=== PATIENT | male | born 1980 | race Caucasian/White ===

== ENCOUNTER 2017-04-20 12:48 | Emergency (ER) | payer OTHER ==
[2017-04-20 12:59] VITALS: BP 147/91; PULSE 101; RESP 16; TEMP 96.8; O2SAT 99
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
== END 2017-04-20 13:48 | disposition home or self-care (01) ==
DX: S51.832A Puncture wound without foreign body of left forearm, initial encounter (principal); F17.200 Nicotine dependence, unspecified, uncomplicated; W55.49XA Other contact with pig, initial encounter; Y92.511 Restaurant or cafe as the place of occurrence of the external cause; Y99.0 Civilian activity done for income or pay; Y93.89 Activity, other specified

== ENCOUNTER 2017-04-24 04:05 | Inpatient (IN) | payer SELFPAY ==
[2017-04-24] MEDS ORDERED: LORazepam 2 MG/ML INJ ONE (04:08)
[2017-04-24] MEDS ORDERED: LORazepam 2 MG/ML INJ IVP ONE ×2 (04:12→04:51)
[2017-04-24] MEDS ORDERED: NS 1,000 ML IV ONE ×2 (04:16→04:31)
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
[2017-04-24 04:24] LABS: % IMMATURE GRANULYOCYTES 0.6 % (0.0-1.1); ABSOLUTE IMMATURE GRANULOCYTES 0.06 10^3/uL (0.00-0.10); ADD DIFF? NO; ADD MORPH? NO; ADD SCAN? NO; ATYPICAL LYMPHOCYTE FLAG 40 (0-99); FRAGMENT RBC FLAG 0 (0-99); HEMOGLOBIN 16.8 g/dL (13.7-17.5); LEFT SHIFT FLG 0 (0-99); LIPEMIA HEMOLYSIS FLAG 90 (0-99); MEAN CELL HEMOGLOBIN 35.4 pg (27.9-34.1); MEAN CELL HEMOGLOBIN CONCENTR. 34.3 g/dL (32.4-36.7); MEAN CELL VOLUME 103.2 fL (81.5-99.8); MEAN PLATELET VOLUME 10.4 fL (8.7-11.7); PLATELET CLUMPS FLAG 0 (0-99); PLATELET COUNT 137 10^3/uL (150-400); RED BLOOD CELL COUNT 4.75 10^6/uL (4.40-6.38); RED CELL DISTRIBUTION WIDTH 12.8 % (11.5-15.2)
[2017-04-24 04:50] LABS: ALANINE AMINOTRANSFERASE 192 IU/L (21-72); ALBUMIN 5.2 g/dL (3.5-5.0); ALKALINE PHOSPHATASE 107 IU/L (38-126); ANION GAP 29 mEq/L (8-16); ASPARTATE AMINOTRANSFERASE 213 IU/L (17-59); BILIRUBIN,TOTAL 1.6 mg/dL (0.1-1.4); BILIRUBIN-CONJUGATED 0.8 mg/dL (0.0-0.5); BILIRUBIN-UNCONJUGATED 0.8 mg/dL (0.0-1.1); CALCIUM 10.5 mg/dL (8.5-10.4); CARBON DIOXIDE 15 mEq/l (22-31); CHLORIDE 96 mEq/L (97-110); CREATININE 1.2 mg/dL (0.7-1.3); GLOMERULAR FILTRATION RATE > 60; GLUCOSE 142 mg/dL (70-100); MAGNESIUM 1.9 mg/dL (1.6-2.3); POTASSIUM 3.9 mEq/L (3.5-5.2); SODIUM 140 mEq/L (134-144); TOTAL PROTEIN 8.2 g/dL (6.3-8.2)
--- NOTE | 2017-04-24 04:57 | CPEKG ---
Heart Rate: 109 RR Interval: 550 P-R Interval: 124 QRSD Interval: 82 QT Interval: 352 QTC Interval: 475 P [place]: 70 QRS [place]: 66 T Wave [place]: 39 EKG Severity - OTHERWISE NORMAL ECG - EKG Impression: SINUS TACHYCARDIA EKG Impression: PAC Electronically Signed By: Aries Sosa 30-Apr-2017 07:39:50
[2017-04-24 05:11] LABS: ETHANOL SERUM < 10 mg/dL (0-10)
[2017-04-24] MEDS ORDERED: ONDANSETRON 4 MG/2 ML VIAL IVP PRN (05:20)
[2017-04-24] MEDS ORDERED: ONDANSETRON DISINTEGRATING 4 MG TAB PO PRN (05:20)
[2017-04-24] MEDS ORDERED: ACETAMINOPHEN 325 MG TAB PO PRN (05:20)
[2017-04-24] MEDS ORDERED: LORazepam 1 MG TAB PO PRN (05:21)
[2017-04-24] MEDS ORDERED: THIAMINE HCL 100 MG TAB ONE (05:26)
[2017-04-24] MEDS: NS 1,000 ML IV SCH ×3 (05:29→14:57)
[2017-04-24 05:39] LABS: INR 0.94 (0.83-1.16); PROTIME(PATIENT) 12.5 SEC (12.0-15.0)
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
[2017-04-24] MEDS: LORazepam 2 MG/ML INJ IVP PRN ×2 (07:49→13:21)
[2017-04-24 08:08] LABS: COLOR YELLOW; LEUKOCYTE ESTERASE,URINE NEGATIVE (NEGATIVE); NITRITE,URINE NEGATIVE (NEGATIVE)
[2017-04-24 08:14] LABS: BACTERIA TRACE /hpf (NONE SEEN); MUCUS TRACE /lpf (NONE-1+)
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
[2017-04-24] MEDS ORDERED: IBUPROFEN 200 MG TAB PO PRN (18:52)
--- NOTE | 2017-04-24 18:55 | HOSPPROG ---
Hospitalist Progress Note Assessment/Plan: prolonged service in addition to the time originally spent on the history and physical, direct patient care, [id number] with patient and his girlfriend from 5:30 p.m. until 6:00 p.m. 30 minutes total time, addressing the following issues: - counseled the patient regarding the time course acute alcohol withdrawal -patient remains high risk for recurrent seizure given that he had a seizure this morning and he remains tremulous, intermittently tachycardic -discussed with patient's nurse, he has only required several doses of Ativan throughout today shift, can adjust his status to med surge - patient desires to stop drinking and would like social work guidance tomorrow -will continue CIWA scoring, and discharge patient once his scoring improves and he can be safely managed with oral Ativan or Librium at home with close outpatient follow-up -will provide patient with referral for outpatient PCP - counseled patient regarding the risk of future episodes of alcohol withdrawal Subjective: ambulating remains tremulous Objective: Vital Signs Temp Pulse Resp BP Pulse Ox 36.7 C 84 14 131/84 H 97 04/24/17 16:00 04/24/17 16:00 04/24/17 16:00 04/24/17 16:00 04/24/17 16:00 04/23/17 04/24/17 04/25/17 05:59 05:59 05:59 Intake Total 3189 Output Total 625 Balance 2564 PT 12.5 SEC (12.0-15.0) 04/24/17 04:00 INR 0.94 (0.83-1.16) 04/24/17 04:00 - Physical Exam Neurologic: AAOx3, other ( visibly tremulous) Psychiatric: interacting appropriately, not anxious, not encephalopathic, thought process linear ICD10 Worksheet Patient Problems: Problems Problem Status Onset Alcohol withdrawal Acute Alcohol withdrawal seizure Acute Tachycardia Acute
[2017-04-25] MEDS: LORazepam 2 MG/ML INJ IVP PRN (01:15)
[2017-04-25 04:38] LABS: % IMMATURE GRANULYOCYTES 0.5 % (0.0-1.1); ABSOLUTE IMMATURE GRANULOCYTES 0.02 10^3/uL (0.00-0.10); ADD DIFF? NO; ADD MORPH? NO; ADD SCAN? NO; ATYPICAL LYMPHOCYTE FLAG 10 (0-99); FRAGMENT RBC FLAG 0 (0-99); HEMATOCRIT 34.6 % (40.0-51.0); LEFT SHIFT FLG 0 (0-99); LIPEMIA HEMOLYSIS FLAG 90 (0-99); MEAN CELL HEMOGLOBIN 35.1 pg (27.9-34.1); MEAN CELL HEMOGLOBIN CONCENTR. 34.7 g/dL (32.4-36.7); MEAN CELL VOLUME 101.2 fL (81.5-99.8); MEAN PLATELET VOLUME 9.7 fL (8.7-11.7); PLATELET CLUMPS FLAG 10 (0-99); PLATELET COUNT 93 10^3/uL (150-400); RED BLOOD CELL COUNT 3.42 10^6/uL (4.40-6.38); RED CELL DISTRIBUTION WIDTH 12.8 % (11.5-15.2)
[2017-04-25 05:07] LABS: ALANINE AMINOTRANSFERASE 148 IU/L (21-72); ALBUMIN 2.6 g/dL (3.5-5.0); ALKALINE PHOSPHATASE 59 IU/L (38-126); ANION GAP 6 mEq/L (8-16); ASPARTATE AMINOTRANSFERASE 156 IU/L (17-59); BILIRUBIN,TOTAL 1.1 mg/dL (0.1-1.4); CARBON DIOXIDE 20 mEq/l (22-31); CHLORIDE 114 mEq/L (97-110); CREATININE 0.6 mg/dL (0.7-1.3); GLOMERULAR FILTRATION RATE > 60; GLUCOSE 70 mg/dL (70-100); MAGNESIUM 1.5 mg/dL (1.6-2.3); POTASSIUM 2.9 mEq/L (3.5-5.2); SODIUM 140 mEq/L (134-144); TOTAL PROTEIN 4.7 g/dL (6.3-8.2)
[2017-04-25] MEDS ORDERED: PROTOCOL CALCIUM 1 DOSE IV PRN (06:52)
[2017-04-25] MEDS ORDERED: PROTOCOL MAGNESIUM 1 DOSE IV PRN (06:52)
[2017-04-25] MEDS ORDERED: PROTOCOL POTASSIUM 1 DOSE MISC PRN (06:52)
[2017-04-25 07:01] LABS: ANION GAP 8 mEq/L (8-16); CALCIUM 8.7 mg/dL (8.5-10.4); CARBON DIOXIDE 23 mEq/l (22-31); CHLORIDE 107 mEq/L (97-110); CREATININE 0.7 mg/dL (0.7-1.3); GLOMERULAR FILTRATION RATE > 60; GLUCOSE 80 mg/dL (70-100); MAGNESIUM 1.8 mg/dL (1.6-2.3); POTASSIUM 3.5 mEq/L (3.5-5.2); SODIUM 138 mEq/L (134-144)
[2017-04-25 08:06] LABS: IONIZED CALCIUM 1.17 MMOL/L (1.12-1.30)
[2017-04-25 08:20] LABS: MAGNESIUM 1.9 mg/dL (1.6-2.3); POTASSIUM 3.6 mEq/L (3.5-5.2)
[2017-04-25] MEDS ORDERED: POTASSIUM CL 10 MEQ TAB PO ONE (08:37)
[2017-04-25 08:44] VITALS: BP 133/87; PULSE 82; RESP 17; TEMP 98; O2SAT 97
[2017-04-25] MEDS ORDERED: THIAMINE HCL 100 MG TAB PO SCH (09:00)
[2017-04-25] MEDS ORDERED: MULTIVITAMINS 1 EACH TAB PO SCH (09:00)
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
--- NOTE | 2017-04-25 12:31 | PDDCSUM ---
Discharge Summary Discharge Summary: DISCHARGE SUMMARY FOLLOW-UP ITEMS: Repeat liver panel and CBC next week DATE OF ADMISSION: 04/24/2017 DATE OF DISCHARGE: 04/25/2017 DISCHARGE DIAGNOSES: 1. Acute alcohol withdrawal seizure with acute delirium tremens 2. Alcoholic hepatitis 3. Acute metabolic acidosis 4. Superficial thrombophlebitis 5. Suspected hematoma CONSULTATIONS: General surgery PROCEDURES / IMAGING: Left upper extremity ultrasound demonstrating superficial thrombophlebitis as well as phlegmon at the previous laceration area CHIEF COMPLAINT: Acute seizure SUBJECTIVE: Patient is feeling well at time of discharge, he is much less tremulous PHYSICAL EXAM ON DISCHARGE: Systolic blood pressure is 120-140, heart rate 70-80, afebrile overnight, satting well on room air, mildly tender, fluctuant area underneath the left upper extremity incision site without any surrounding erythema or induration, scattered ecchymoses over the ventral surface of the left upper extremity extending into the antecubital fossa, fine resting tremor, no asterixis, alert awake oriented x3 LABS ON DISCHARGE: AST 160, ALT 150, alk-phos 60, total bilirubin 1.1, albumin 2.6, creatinine 0.7 , potassium 3.5, serum bicarbonate 23, white blood cell count 3800, hemoglobin 12, platelets [id number] HOSPITAL COURSE BY PROBLEM: 1. Acute alcohol withdrawal seizure. The patient presented with acute alcohol withdrawal seizure with last alcohol consumption approximately 48 hours prior to his seizure. He did have acute tremulousness as well as encephalopathy, qualifying him as acute delirium tremens. He was treated with Ativan and his CIWA scores improved. At the time of discharge, he only has a fine resting tremor, he is otherwise cognitively well, he is ambulating safely, he is safe for discharge home with a very limited supply of as needed Librium low dose to be taken if needed for ongoing anxiety. Instructions were provided to the patient in the presence of his girlfriend will who will assist in his care. He also received counseling from our geriatric social work professor. 2. Alcoholic hepatitis. Patient had some acute alcoholic hepatitis with AST greater than ALT, declining in the setting of absence from alcohol. He also had some evidence of poor synthetic function his CBC. Should have repeat CBC and liver panel next week. 3. Superficial thrombophlebitis. Patient has some evidence of thrombophlebitis in his left upper extremity but no DVT. We recommend warm compress and elevating his arm. Is unclear whether this occurred in the setting of his seizure, but the treatment is the same. 4. Acute metabolic acidosis. Secondary to seizure, received IV fluids, serum bicarbonate level improved. 5. Suspected hematoma. Suspected the patient has a small hematoma underneath the left upper extremity laceration site for approximately 1 week ago. There is no evidence of erythema or induration, and no cause to administer antibiotics. He was seen in consultation by general surgeon Dr. Bryan Luna to determine whether the area need to be incised and drained. Dr. Luna felt like risk greater than benefit for this area. DISCHARGE MEDICATIONS: Please see official discharge medication reconciliation sheet in chart , Librium 10 mg as needed for anxiety, 5 tabs prescribed. DISCHARGE INSTRUCTIONS: [facility] and have labs redrawn. TIME SPENT: Greater than 30 minutes were spent on direct patient care, as well as discharge planning and preparation. The patient was discharged more rapidly than originally anticipated, secondary to highly efficient expeditious care by his nursing team, hospitalist, general surgeon, and all staff members involved.
--- NOTE | 2017-04-25 12:55 | SOAPPROG ---
SOAP Progress Note Assessment/Plan: Assessment/Plan: ETOH Abuse, Withdrawal, W/D Sz. For D/C today. Effects of chronic alcohol abuse and its potential sequela discussed with the patient and his girlfriend prior to discharge. Effects of alcohol beyond DTs and seizures, which he has, including alcoholic hepatitis leading to cirrhosis, bone marrow suppression, electrolyte and vitamin deficiencies, etc were all discussed. Abstinence from alcohol strongly advised. Objective: Vital Signs Temp Pulse Resp BP Pulse Ox 36.7 C 82 17 133/87 H 97 04/25/17 08:00 04/25/17 08:00 04/25/17 08:00 04/25/17 08:00 04/25/17 08:00 Laboratory Results 04/25/17 04:26 04/25/17 08:00 04/24/17 04/25/17 04/26/17 05:59 05:59 05:59 Intake Total 3989 Output Total 1875 Balance 2114 PT 12.5 SEC (12.0-15.0) 04/24/17 04:00 INR 0.94 (0.83-1.16) 04/24/17 04:00 Physical Exam - Physical Exam General Appearance: alert, no apparent distress, other (Unchanged from yesterday. Tremor resolved. No seizure activity.) ICD10 Worksheet Patient Problems: Problems Problem Status Onset Alcohol withdrawal Acute Alcohol withdrawal seizure Acute Tachycardia Acute
[2017-04-27] MEDS ORDERED: THIAMINE HCL 100 MG TAB PO SCH (09:00)
== END 2017-04-25 12:45 | disposition home or self-care (01) | DRG 897 ==
LOC: EDUNIT# → F2N 07:25
PROVIDERS: ADMIT Student in an Organized Health Care Education/Training Program; ATTEND Student in an Organized Health Care Education/Training Program
DX: F10.231 Alcohol dependence with withdrawal delirium (principal); K70.10 Alcoholic hepatitis without ascites; E87.2 Acidosis; I80.8 Phlebitis and thrombophlebitis of other sites; S40.022A Contusion of left upper arm, initial encounter; Z72.0 Tobacco use
CPT/HCPCS: 80305; 96374; G0480; J2060